=== PATIENT | male | born 1995 | race Caucasian/White ===

== ENCOUNTER 2016-10-05 17:14 | Emergency (ER) | payer OTHER ==
[2016-10-05 17:20] VITALS: BP 100/63; RESP 16; TEMP 99.1
[2016-10-05] MEDS ORDERED: LET GEL TOPICAL 1 EA SYR TP ONE (17:40)
--- NOTE | 2016-10-05 17:45 | EDPHY ---
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 He reports there was mild moderate bleeding that stopped with direct pressure prior to arrival. He has no other injuries or complaints. ROS: No numbness or tingling. No other neuro symptoms No difficulty moving the affected finger No other injuries. 5 point ROS is otherwise negative. Smoking Status: Never smoked Physical Exam: Physical Exam Vital signs are normal. General: No acute distress Lungs: No respiratory distress. Cardiac: Brisk capillary refill is intact throughout. Skin: No rash or pallor. Extremities: Atraumatic normal except for left thumb left thumb: Patient has a 8 mm partial-thickness skin avulsion to the tip of the left thumb with no significant active bleeding. He has mild tenderness to this area. Neuro: Alert and oriented x3 with no sensorimotor deficits. Constitutional: Initial Vital Signs Temperature (C) 37.3 C 10/05/16 17:17 Heart Rate 76 10/05/16 17:17 Respiratory Rate 16 10/05/16 17:17 Blood Pressure 100/63 10/05/16 17:17 O2 Sat (%) 97 10/05/16 17:17 O2 Delivery Mode Room Air Allergies/Adverse Reactions: Penicillins Allergy (Verified 10/05/16 17:17) Home Medications: Medication Instructions Recorded Miscellaneous Medical Supply [NO 1 ea [facility] [place] 01/13/12 HOME MEDS] MDM/Departure - MDM ED Course/Re-evaluation: Let solution is applied. The fingers and clean. Dressings applied. I counseled patient regarding wound care. - Depart Disposition: Home, Routine, Self-Care Clinical Impression: Avulsion of skin of finger Qualifiers: Encounter type: initial encounter Qualified Code(s): S61.209A - Unspecified open wound of unspecified finger without damage to nail, initial encounter Condition: Good Instructions: Skin Avulsion (ED) Additional Instructions: Diagnosis: Skin avulsion of left thumb tip Plan: Keep the dressing on clean dry for the next 2 days. Then remove the dressing, clean the thumb daily with warm soapy water Apply a Band-Aid aware glove while at work until the wound heals thereafter. Return if he develops redness, discharge or other concerns for infection Ibuprofen Tylenol for pain as needed. Referrals: NONE *PRIMARY CARE P,. [Primary Care Provider] - As per Instructions
[2016-10-05 19:02] VITALS: PULSE 80; O2SAT 96
== END 2016-10-05 18:59 | disposition home or self-care (01) ==
LOC: CED 17:14
DX: S61.002A Unspecified open wound of left thumb without damage to nail, initial encounter (principal); W26.0XXA Contact with knife, initial encounter; Y99.8 Other external cause status; Y93.G1 Activity, food preparation and clean up